=== PATIENT | male | born 1970 | race Two or more races ===

== ENCOUNTER 2020-08-15 08:09 | Outpatient (REF) | payer MEDICAID, SELFPAY ==
--- NOTE | ~2020-08-15 | XR_ITS ---
EXAMINATION: XR BILATERAL AP KNEE XR LEFT KNEE CLINICAL INFORMATION: Pain in unspecified knee. COMPARISON: None. TECHNIQUE: Bilateral AP knees standing. Left knee 2 views. FINDINGS: Bilateral AP Knee: There is moderate reduction in medial compartment joint space both knees with moderate periarticular spurring right knee. The lateral compartment joint space is normal. No loose bodies or bony erosive changes seen. Left Knee: The patellofemoral compartment joint space is maintained. No bony erosive changes seen. No abnormal joint effusion. XR/XR knee standing BI IMPRESSION: Moderate degenerative changes medial compartment both knees with moderate periarticular spurring right knee. No visible acute fracture or dislocation.
--- NOTE | ~2020-08-15 | XR_ITS ---
EXAMINATION: XR BILATERAL AP KNEE XR LEFT KNEE CLINICAL INFORMATION: Pain in unspecified knee. COMPARISON: None. TECHNIQUE: Bilateral AP knees standing. Left knee 2 views. FINDINGS: Bilateral AP Knee: There is moderate reduction in medial compartment joint space both knees with moderate periarticular spurring right knee. The lateral compartment joint space is normal. No loose bodies or bony erosive changes seen. Left Knee: The patellofemoral compartment joint space is maintained. No bony erosive changes seen. No abnormal joint effusion. XR/XR knee LT 2V IMPRESSION: Moderate degenerative changes medial compartment both knees with moderate periarticular spurring right knee. No visible acute fracture or dislocation.
== END 2020-08-15 08:10 | disposition home or self-care (01) ==
LOC: HO.HOSX 08:09
PROVIDERS: Visit Provider Physician Assistant
DX: M17.12 Unilateral primary osteoarthritis, left knee (principal)
CPT/HCPCS: 73560; 73565; 99202

== ENCOUNTER → 2020-08-23 19:42 | Outpatient (REF) | payer MEDICAID, SELFPAY | LOC: HO.SL 19:42 | PROVIDERS: Visit Provider Nurse Practitioner Family | DX: G47.30 Sleep apnea, unspecified (principal); G47.61 Periodic limb movement disorder | CPT/HCPCS: 95810 ==

== ENCOUNTER 2021-07-20 11:00 | Outpatient (REF) | payer MEDICAID, SELFPAY ==
[2021-07-20 12:44] LABS: MANUAL DIFF FLAG NO
[2021-07-20 13:15] LABS: Basophils Percent Auto 0.7 % (0-2); Eosinophils Percent Auto 0.5 % (0-4); Hematocrit 47.4 % (42.0-52.0); Hemoglobin 15.9 g/dl (14.0-18.0); Imm Gran Abs Auto 0.01 X10*3/uL (0.00-0.03); Imm Gran Pct Auto 0.2 % (0.0-0.4); Lymphocytes Absolute Auto 1.5 X10*3/uL (1.2-4.9); Lymphocytes Percent Auto 26.7 % (20-40); Mean Corpuscular HGB Conc 33.5 g/dl (31.0-36.0); Mean Corpuscular Hemoglobin 32.1 pg (27.0-33.0); Mean Corpuscular Volume 95.8 fL (80.0-98.0); Mean Platelet Volume 9.5 fL (9.4-12.4); Monocytes Absolute Auto 0.5 X10*3/uL (0.1-1.2); Monocytes Percent Auto 8.2 % (2-11); Neutrophils Absolute Auto 3.7 x10*3/uL (2.0-8.3); Neutrophils Percent Auto 63.7 % (45-73); Platelet Count 262 X10*3/uL (160-400); Red Blood Count 4.95 X10*6/uL (4.60-5.80); Red Cell Distribution Width 13.1 % (11.0-16.0); White Blood Count 5.7 X10*3/uL (4.8-10.8)
[2021-07-20 13:50] LABS: Alanine Aminotransferase 31 U/L (0-40); Albumin Level 4.4 g/dL (3.5-5.0); Alkaline Phosphatase 80 U/L (39-117); Anion Gap 16 (12-20); Aspartate Amino Transferase 32 U/L (5-37); Bilirubin Total 0.7 mg/dL (0.0-1.0); Blood Urea Nitrogen 9 mg/dL (9-16); Calcium 9.4 mg/dL (8.4-10.2); Carbon Dioxide 23 mmol/L (22-29); Chloride 101 mmol/L (96-108); Estimated Glomerular Filt Rate > 60; Glucose Random 145 mg/dL (60-115); Potassium 4.3 mmol/L (3.3-5.1); Sodium 136 mmol/L (135-145); Total Protein 7.5 g/dL (6.5-8.0)
== END 2021-07-20 11:01 | disposition home or self-care (01) ==
LOC: HO.LAB 11:00
PROVIDERS: PCP General Practice; Referring Provider General Practice; Visit Provider Nurse Practitioner
DX: Z01.818 Encounter for other preprocedural examination (principal)
CPT/HCPCS: 36415; 80053; 85025; 99202

== ENCOUNTER 2022-05-09 14:09 | Outpatient (REF) | payer MEDICAID, SELFPAY ==
--- NOTE | ~2022-05-09 | XR_ITS ---
EXAMINATION: XR ELBOW, LEFT CLINICAL INFORMATION: Pain. COMPARISON: None TECHNIQUE: AP, lateral, and oblique views of the left elbow. FINDINGS: Bony alignment and mineralization are normal. No fracture, dislocation or joint effusion is seen. There are mild osteoarthritic changes of the articular surfaces of the left elbow. No soft tissue swelling, gas or foreign body is seen. XR/XR elbow LT min 3V IMPRESSION: 1. No fracture, dislocation or left elbow joint effusion is seen. 2. There are mild osteoarthritic changes of the left elbow.
--- NOTE | ~2022-05-09 | XR_ITS ---
EXAMINATION: XR KNEE, LEFT CLINICAL INFORMATION: Osteoarthritis. COMPARISON: Radiographs dated 08/15/2020. TECHNIQUE: AP and lateral views of the left knee. FINDINGS: Bony alignment and mineralization are normal. There is moderate asymmetric narrowing of the medial joint space compartment. The lateral and patellofemoral joint space compartments are well-maintained. There is slight peripheral osteophyte formation of the patellofemoral compartment. No fracture or dislocation is seen. This no significant varus or valgus configuration. No foreign body is seen. XR/XR knee LT 3V IMPRESSION: There is moderate degenerative change of the medial joint space compartment of the left knee, and mild degenerative change is seen of the patellofemoral compartment. No fracture, dislocation or joint effusion is noted.
--- NOTE | ~2022-05-09 | XR_ITS ---
EXAMINATION: XR FOOT, RIGHT CLINICAL INFORMATION: Pain. COMPARISON: None TECHNIQUE: AP, lateral, and oblique views of the right foot. FINDINGS: Bony alignment and mineralization are normal. There is marked osteoarthritic change of the first metatarsophalangeal joint, with exuberant peripheral osteophyte formation. No fracture, dislocation or right ankle joint effusion is seen. Boehler's angle is normal. There is no calcaneal spur. No focal soft tissue swelling, gas or foreign body is seen. XR/XR foot RT min 3V IMPRESSION: 1. No fracture, dislocation or right ankle joint effusion is seen. 2. There is marked osteoarthritic change of the right first metatarsophalangeal joint.
== END 2022-05-09 14:10 | disposition home or self-care (01) ==
LOC: HO.XRAY 14:09
PROVIDERS: PCP General Practice; Visit Provider General Practice
DX: M79.671 Pain in right foot (principal); M17.12 Unilateral primary osteoarthritis, left knee; M25.522 Pain in left elbow
CPT/HCPCS: 73080; 73562; 73630

== ENCOUNTER 2022-06-05 12:58 | Day surgery (SDC) | payer MEDICAID, SELFPAY ==
[2022-05-31 14:48] VITALS: BMI 29.0
[2022-06-05 13:16] VITALS: BP 148/73; PULSE 76; RESP 18; TEMP 36.4; O2SAT 97
[2022-06-05] MEDS: Lactated Ringers 1,000 ML 50 ML IVCONT (13:41)
--- NOTE | 2022-06-05 14:14 | P.HPSUR_ITS ---
Pre-Procedural Eval Section A Date of Service: 06/05/22 Section B Chief Complaint: screening Relevant Family History (Specify if Yes): No Relevant Social History: Other (specify) (THC use) Present Medications: see Short Stay Collaborative assessment Medical History: Significant History (Obstructive sleep apnea High cholesterol HTN Smoker Chronic cough Chronic low back pain with sciatica Multiple arthra lgias) History of Previous Operations: Relevant previous surgery/procedure and date(s) (Umbilical hernia Lumbar discectomy) Allergies: Allergies Allergy/AdvReac Type Severity Reaction Status Date / Time codeine Allergy Intermediate itching Verified 05/31/22 14:44 Review of Systems Sugical H&P ROS: Negative: Constitution, Cardiovascular, Respiratory, Neurological, Psychiatric, Hem-Onc, Allergic/Immunologic, Gastrointestinal, Genitourinary, Musculoskeletal, Integumentary, Endocrine and Eyes/Ears/Nose/Throat Exam Surgical H&P Exam: Normal: HEENT, Normal: Heart, Normal: Lungs, Normal: Extremities, Normal: Abdomen, Normal: Skin and Normal: Neurological Plan Diagnosis/Plan: Unchanged I have reviewed the history and physical and performed a pertinent physical examination on my patient. No changes have occurred unless specified. Time Spent With Patient Time: Total time managing care of this patient today ____ minutes.
--- NOTE | 2022-06-05 14:16 | P.OP_ITS ---
Operative Note Operative Note Date of Service: 06/05/22 Narrative: Operative Information Procedure Description: Colonoscopy Indication: screening Anesthesia: MAC COLONOSCOPY Instrument: Olympus variable stiffnessAdult scope 190L Colonoscopy Monitoring: Vital signs and clinical assessment, continuous EKG monitoring, Pulse oximetry, Carbon Dioxide monitoring and blood pressure monitoring were done throughout the procedure. Colon withdrawal time was 12 minutes. Procedure: The patient was placed in the left lateral decubitis position and pre-procedure medications were administered. After a digital rectal examination of the ano-rectum, the video colonoscope was inserted into the rectum and advanced through the colon to the cecum/TI. The colonoscope was slowly withdrawn in a retrograde panoramic fashion and the colon mucosa was carefully examined including a retroflexed view of the rectum. Findings and interventions are described below. Procedure Difficulty: easy Findings: Terminal Ileum-normal Cecum:normal Ascending Colon: normal Transverse Colon -normal Descending Colon:normal Sigmoid Colon: normal Rectum: Retroflexion with medium sized internal hemorrhoids, grade I with skin tag, 10 mm sessile polyp removed with cold snare Anorectum - normal Colon preparation: [place] Bowel Preparation Scale Right colon; 1-2 Transverse colon:1- 2 Left colon; 2 (0 = Unprepared colon segment with mucosa not seen due to solid stool that cannot be cleared. 1 = Portion of mucosa of the colon segment seen, but other areas of the colon segment not well seen due to staining, residual stool and/or opaque liquid. 2 = Minor amount of residual staining, small fragments of stool and/or opaque liquid, but mucosa of colon segment seen well. 3 = Entire mucosa of colon segment seen well with no residual staining, small fragments of stool or opaque liquid) Impression and Post Procedure Diagnosis: internal hemorrhoids wt skin tag polyp Plan: High fiber diet leaflet Avoid straining at stool, epsom salts and sitz bath, anusol supps or cream Repeat Colonoscopy in 5 years due to fair prep and polyp or earlier if clinically indicated Above findings were reviewed with the patient and relevant handouts were provided if indicated.
--- NOTE | 2022-06-05 14:36 | HO.ANESPROP2 ---
[facility] Active Problems Active Problems: All Active Problems (Updated 06/05/22 @ 13:29 by Dona Crain RN) Knee pain (Acute) Osteoarthritis of left knee (Acute) High cholesterol (Acute) LIDIA (obstructive sleep apnea) (Acute) Smoker (Acute) Chronic cough (Acute) Chronic low back pain with sciatica (Acute) Arthralgia of multiple sites, bilateral (Acute) Colon cancer screening (Acute) Past Medical History Medical History (Updated 06/05/22 @ 13:29 by Dona Crain RN) Elevated cholesterol High blood pressure Hx of back injury Hx of backache Sleep disturbance, unspecified Family History Family History (Updated 07/20/21 @ 11:39 by Doreen Vann) Father Diabetes Paternal Grandfather Diabetes Arthritis Mother Heart disease Family history of problems with anesthesia: No Surgical History Surgical History (Updated 06/05/22 @ 13:29 by Dona Crain RN) History of back surgery History of hand surgery Hx of umbilical hernia repair History of Problems with Anesthesia: No Social History Social History (Updated 07/20/21 @ 11:23 by Doreen Vann) Household Members: None Alcohol intake: current Alcohol intake frequency: holidays/special occasions only Patient Tobacco Use Status: Current everyday Tobacco user Tobacco use type: Cigarette Substance Use Type: Marijuana Are you DNR?: No Advance Directives: No Advance Directives Information Provided: Yes Current occupational status: unemployed Current occupation: rt hand Meds Allergies Allergy/AdvReac Type Severity Reaction Status Date / Time codeine Allergy Intermediate itching Verified 05/31/22 14:44 amlodipine Allergy Swelling Verified 06/05/22 14:17 Active Medications: Current Medications Lactated Ringer's (Lr) 1,000 mls @ 50 mls/hr IVCONT .Q20H JUAN Last Admin: 06/05/22 13:41 Dose: 50 mls/hr Home Medications Medication Instructions Recorded Confirmed Last Taken Type cyclobenzaprine 5 mg tablet 5 mg PO TID PRN Pain 07/20/21 06/04/22 History hydrochlorothiazide 12.5 mg tablet 12.5 mg PO DAILY 07/20/21 06/03/22 History Exam Exam Date and Time: June 05, 2022 1436 Height,Weight and Vital Signs: Height 5 ft 7 in Weight 83.915 kg Last Vital Signs Temp 97.5 F 06/05/22 13:16 Pulse 76 06/05/22 13:16 Resp 18 06/05/22 13:16 BP 148/73 H 06/05/22 13:16 Pulse Ox 97 06/05/22 13:16 O2 Del Method 06/05/22 13:16 Airway Mallampati Class: II TM Dist: >3cm Neck ROM: Full Assessment and Plan Assessment Anesthesia Assessment: Anesthesia Plan Discussed and Chart Reviewed Final Anesthetic Review Family History of Problems with Anesthesia: No History of Problems with Anesthesia: No NPO: Yes ASA Class: III Final Preanesthetic Review: No Changes in Pt Med Stat, Meds/Allgs Chart Reviewed, Consent Obtained/Reviewed and Anes Risks/Benef Reviewed Patient Risk: Intermediate Procedure Risk: Low Anesthetic Plan Anesthetic Plan: MAC: Disposition: Standard PACU
[2022-06-05 15:02] VITALS: BP 141/91; PULSE 77; RESP 16; TEMP 36.2; O2SAT 99
[2022-06-05 15:17] VITALS: BP 145/96; PULSE 70; RESP 16; O2SAT 99
[2022-06-05 15:32] VITALS: BP 147/96; PULSE 68; RESP 16; O2SAT 99
[2022-06-05 15:45] VITALS: BP 142/104; PULSE 72; RESP 16; TEMP 36.4; O2SAT 100
== END 2022-06-05 16:33 | disposition home or self-care (01) ==
PROVIDERS: PCP General Practice; Visit Provider Internal Medicine Gastroenterology
PROC: 0DJD8ZZ Inspection of Lower Intestinal Tract, Via Natural or Artificial Opening Endoscopic (ICD-10-PCS; CPT 45378; principal; 2022-06-05 12:50)
DX: Z12.11 Encounter for screening for malignant neoplasm of colon (principal); K62.1 Rectal polyp; K64.0 First degree hemorrhoids; K64.4 Residual hemorrhoidal skin tags; G47.33 Obstructive sleep apnea (adult) (pediatric); E78.00 Pure hypercholesterolemia, unspecified; I10 Essential (primary) hypertension; R05.3 Chronic cough; G89.29 Other chronic pain; M54.40 Lumbago with sciatica, unspecified side; Z79.899 Other long term (current) drug therapy; Z88.8 Allergy status to other drugs, medicaments and biological substances; F17.210 Nicotine dependence, cigarettes, uncomplicated; F12.90 Cannabis use, unspecified, uncomplicated
CPT/HCPCS: 45385; 88305

== ENCOUNTER → 2022-06-20 14:36 | Outpatient (BNVA) | payer MEDICAID, SELFPAY | PROVIDERS: PCP General Practice; Visit Provider Nurse Practitioner | DX: Z12.11 Encounter for screening for malignant neoplasm of colon (principal) | CPT/HCPCS: 99212 ==

== ENCOUNTER 2023-02-14 15:44 | Outpatient (REF) | payer MEDICAID, SELFPAY ==
--- NOTE | ~2023-02-14 | XR_ITS ---
EXAMINATION: XR KNEE, RIGHT CLINICAL INFORMATION: Chronic pain COMPARISON: 08/15/2020 TECHNIQUE: 3 views of the right knee. FINDINGS: Tricompartmental degenerative changes seen more so in the medial compartment where there is more significant loss of joint space, subchondral sclerosis, and osteophyte formation. No acute fracture or dislocation. Mild vascular calcification. No significant joint effusion. XR/XR knee RT 3V IMPRESSION: Tricompartmental degenerative changes more so in the medial compartment.
== END 2023-02-14 15:45 | disposition home or self-care (01) ==
LOC: HO.HHCX 15:44
PROVIDERS: Visit Provider General Practice
DX: M25.561 Pain in right knee (principal)
CPT/HCPCS: 73562

== ENCOUNTER 2023-04-30 10:32 | Outpatient (REF) | payer MEDICAID, SELFPAY ==
[2023-04-30 12:46] LABS: Alanine Aminotransferase 38 U/L (0-40); Albumin Level 4.4 g/dL (3.5-5.0); Alkaline Phosphatase 86 U/L (39-117); Anion Gap 13 (12-20); Aspartate Amino Transferase 26 U/L (5-37); Bilirubin Total 0.4 mg/dL (0.0-1.0); Blood Urea Nitrogen 11 mg/dL (9-16); Calcium 9.5 mg/dL (8.4-10.2); Carbon Dioxide 28 mmol/L (22-29); Chloride 100 mmol/L (96-108); Cholesterol 205 mg/dL (<200); Estimated Glomerular Filt Rate > 60; Glucose Random 107 mg/dL (60-115); HDL Cholesterol 49 mg/dL (>40); LDL Cholesterol Calculated 121 mg/dL (<100); Sodium 137 mmol/L (135-145); Total Protein 7.9 g/dL (6.5-8.0); Triglycerides 177 mg/dL (<150)
[2023-04-30 12:57] LABS: Creatinine Urine 66.83 mg/dL; Microalbumin Urine < 5.0 mg/L
== END 2023-04-30 10:33 | disposition home or self-care (01) ==
LOC: HO.HHCL 10:32
PROVIDERS: Visit Provider General Practice
DX: E11.9 Type 2 diabetes mellitus without complications (principal)
CPT/HCPCS: 36415; 80053; 80061; 82043; 82570

== ENCOUNTER 2024-02-16 10:22 | Outpatient (REF) | payer MEDICAID, SELFPAY ==
--- NOTE | ~2024-02-16 | XR_ITS ---
EXAMINATION: XR LUMBOSACRAL SPINE CLINICAL INFORMATION: pain and worsening disability COMPARISON: MRI lumbar spine 09/07/2019, lumbar spine radiographs 05/18/2019 TECHNIQUE: Three views of the lumbosacral spine. FINDINGS: Again seen is a scoliosis convex to the left. There is some mild spondylitic changes seen with endplate osteophytes involving the superior endplates of L2 L4 and L5 as well as T12. Disc space and vertebral body heights are fairly well maintained. No fractures or bony destructive lesions. XR/XR lumbar spine 2-3V IMPRESSION: Scoliosis and mild degenerative changes. No acute finding. Electronically signed by: Kg Wood MD 02/16/2024 03:27 PM BURKE NOGUEIRA
== END 2024-02-16 10:23 | disposition home or self-care (01) ==
LOC: HO.HHCX 10:22
PROVIDERS: Visit Provider General Practice
DX: M54.50 Low back pain, unspecified (principal); G89.29 Other chronic pain
CPT/HCPCS: 72100

== ENCOUNTER 2024-05-18 11:21 | Outpatient (REF) | payer MEDICAID, SELFPAY ==
--- NOTE | ~2024-05-18 | XR_ITS ---
CLINICAL HISTORY: R hand pain Radiographs of the right hand, 3 views Comparison: None Findings: No fracture or dislocation. Vvci-do-qyllxaef degenerative change. Bone mineralization is normal. No soft tissue swelling. Impression: No acute findings. Jzrb-cb-iuufeqgx degenerative change. This document has been electronically signed by: Anastacia Singh MD on 05/18/2024 13:16:43
--- OUTSIDE RECORDS SUMMARY | 2024-05-18 12:37 | XMS_ITS | Encounter Summary ---
Author Organization [employer] Address [address] [place] [address] [address] [place] [address] Care Team Providers Care Sales Team Member Name Role Phone Cate Chavez MD Primary Care Provider [phone] Reason for Visit * Reason Comments Annual Exam Encounter Details Date Type Department Care Team (Late st Contact Info) Description 05/18/2024 10:30 AM EST Office Visit [facility] [address] [place], [place] [phone] Cate Chavez MD [address] [place], [place] [phone] Obstructive sleep apnea syndrome (Primary Dx); Prediabetes; Essential hypertension; Hyperkalemia; Dietary counseling; Exercise counseling; Overweight; Right hand pain Social History Tobacco Use Types Packs/Day Years Used Date Smoking Tobacco: Every Day Cigarettes Passive Smoke Exposure: Current Smokeless Tobacco: Never Tobacco Cessation:Ready to Q uit: Not Asked; Counseling Given: Not Answered Alcohol Use Standard Drinks/Week Comments Never 0 (1 standard drink = 0.6 oz pur e alcohol) Alcohol Answer Date Recorded How often do you have a drink containing alcohol ? 3 05/18/2024 How many drinks containing a lcohol do you have on a typical day when you are drinking? 0 05/18/2024 How often do you have six or more drinks on one occasion? 0 05/18/2024 Depression Answer Date Recorded Patient Health Questionnaire-9 Score 18 07/25/2023 Patient Health Questionnaire-9 Score 18 07/25/2023 Last PHQ-9: Questionnaire Data Not on file 0 07/25/2023 Housing Stability Answer Date Recorded What is your housing situation today? I do not have housing (Staying with others, in a hotel, in a penitentiary, living outside on the street, on a beach, in a car, or in a park 05/04/[address] you li ve. Do you have problems with any of the following? None of the above 05/04/2024 Food Insecurity Answer Date Recorded Within the past 12 months, y ou worried that your food would run out before you got money to buy more: Sometimes True 2024 Within the past 12 months,th e food you bought just didn't last and you didn't have enough money to get more: Sometimes True 05/04/2024 Transportation Answer Date Recorded In the past 12 months, has l ack of transportation kept you from medical appts, meetings, work or from getting things needed for daily living? No 05/04/2024 Intimate Partner Violence Answer Date R ecorded Within the last year, have y ou been afraid of your partner or ex-partner? 1 05/18/2024 Within the last year, have y ou been humiliated or emotionally abused in other ways by your partner or ex-partner? 2 Within the last year, have y ou been kicked, hit, slapped, or otherwise physically hurt by your partner or ex-partner? 1 05/18/2024 Within the last year, have y ou been raped or forced to have any kind of sexual activity by your partner or ex-partner? 2 05/18/2024 Utilities Answer Date Recorded In the past 12 months, has t he electric, gas, oil or water company threatened to shut off services in your home? No 05/04/2024 Depression Answer Date Recorded Patient Health Questionnaire-2 Score 6 07/25/2023 Internet Access Answer Date Recorded Internet Access Q1 No 05/04/2024 Internet Access Q2 Not on file 05/04/2024 Sex and Gender Information Value Date Recorded Sex Assigned at Male 01/28/2022 10:29 AM EDT Legal Sex Male 10:29 AM EDT Gender Identity Male 01/28/2022 10:29 AM EDT Sexual Orientation Straight 01/28/2022 10 :29 AM EDT documented as of this encounter Last Filed Vital Signs Vital Sign Reading Time Taken Comments Blood Pressure 157/91 05/18/2024 10:38 AM EST Pulse 86 05/18/2024 10:38 AM EST Temperature 36.4 ??C (97.6 ??F) 05/18/2024 10:[address] Respiratory Rate 17 05/18/2024 10:38 AM EST Oxygen Saturation 98% 05/18/2024 10:38 AM EST Inhaled Oxygen Concentration - - Weight 80.7 kg (178 lb) 05/18/2024 10:38 AM EST Height 170.2 cm (5' 7 ) 05/18/2024 10:38 AM EST Body Mass Index 27.88 05/18/2024 10:38 AM EST documented in this encounter Plan of Treatment Scheduled Orders Name Type Priority Associated Diagnoses Orde r Schedule Lipid Panel, Standard Lab Routine Prediabetes Expected: 05/18/2024 (Approximate), Expires: 05/18/2025 Hemoglobin A1c Lab Routine Prediabetes Expected: 05/18/2024 (Approximate), Expires: 05/18/2025 CBC auto differential Lab Routine Essential hypertension Expected: 05/18/2024 (Approximate), Expires: 05/18/2025 TSH W/Reflex to FT4 Lab Routine Essential hypertension Expected: 05/18/2024 (Approximate), Expires: 05/18/2025 Albumin, Random Urine W/Creatinine Lab Routine Prediabetes Expected: 05/18/2024 (Approximate), Expires: 05/18/2025 Comprehensive Metabolic Panel Lab Routine Hyperkalemia Expected: 05/18/2024 (Approximate), Expires: 05/18/2025 XR Hand 3+ Views Right Imaging Routine Right hand pain Expected: 05/18/2024, Expires: 05/18/2025 documented as of this encounter Visit Diagnoses Diagnosis Obstructive sleep apnea syndrome- Primary Obstructive sleep apnea (adult) (pediatric) Prediabetes Other abnormal glucose Essential hypertension Unspecified essential hypertension Hyperkalemia Hyperpotassemia Dietary counseling Dietary surveillance and counseling Exercise counseling Overweight Right hand pain Pain in soft tissues of limb documented in this encounter Additional Health Concerns Assessment Noted Time PHQ-9 Depression Total Score: 18 024 9:30 AM EDT documented as of this encounter Care Teams Sales Team Member Relationship Specialty Start Date End Date Cate Chavez MD [address] [place] [id number] PCP - General Family Medicine 11/21/20 documented as of this encounter
--- OUTSIDE RECORDS SUMMARY | 2024-05-18 12:37 | XMS_ITS | Encounter Summary ---
Author Organization [employer] Address [address] [facility] [address] [place] [address] Care Team Providers Care Oracle Application Consultant Name Role Phone Cate Chavez MD Primary Care Provider [phone] Reason for Visit * Reason Comments Pre-visit Planning (SDOH screening posi tive tobacco screening positive) Encounter Details Date Type Department Care Team ([facility] st Contact Info) Description 05/04/2024 Patient Outreach [facility] [address] [place], [place] [phone] Cate Chavez MD [address] [place] [address] Pre-visit Planning ((SDOH screening positive tobacco screening positive)) Social History Tobacco Use Types Packs/Day Years Used Date Smoking Tobacco: Every Day Cigarettes Passive Smoke Exposure: Current Smokeless Tobacco: Never Alcohol Use Standard Drinks/Week Comments Never 0 (1 standard drink = 0.6 oz pur e alcohol) Depression Answer Date Recorded Patient Health Questionnaire-9 Score 18 07/25/2023 Patient Health Questionnaire-9 Score 18 07/25/2023 Last PHQ-9: Questionnaire Data Not on file 0 07/25/2023 Housing Stability Answer Date Recorded What is your housing situation today? I do not have housing (Staying with others, in a hotel, in a care home, living outside on the street, on a [...] things needed for daily living? No 05/04/2024 Utilities Answer Date Recorded In the past [...] AM EDT documented as of this encounter Progress Notes * Paola Foley - 05/04/2024 9:11 AM EST CC Paola placed successful outbound call to patient for pre-visit planning. Patient name and confirmed. Patient confirms appt date and time, and has transportation arrangements. Biggest concern for appointment at this time is sleep apnea Appropriate screening completed in anticipation of appointment. Patient advised to bring to appointment a photo id and insurance card, SDOH positive. Patient looking for assistance with hosuing and food insecurities Referral will be placed. documented in this encounter Plan of Treatment Not on file documented as of this encounter Visit Diagnoses Not on filedocumented in this encounter Additional Health Concerns Assessment Noted Time PHQ-9 Depression Total Score: 18 024 9:30 AM EDT documented as of this encounter Care Teams Oracle Application Consultant Relationship Specialty Start Date End Date Cate Chavez MD [address] [place] [address] PCP - General Family Medicine 11/21/20 documented as of this encounter
--- OUTSIDE RECORDS SUMMARY | 2024-05-18 12:37 | XMS_ITS | Clinical Summary ---
Author Organization [employer] Address [address] [facility] [address] [place] [address] Care Team Providers Care Manager Legal Name Role Phone Cate Chavez MD Primary Care Provider [phone] Allergies Active Allergy Reactions Criticality Noted Date Comments Codeine 09/18/2015 Other reaction(s): Itching Lisinopril Angioedema 12/25/2020 Naproxen 05/14/2019 Other reaction(s): Nausea / Vomiting Medications * This document contains information received from the source organization and may not represent a complete record from that organization. acetaminophen (Tylenol 8 Hour) 650 MG ER tablet Take 1 tablet (650 mg) by mouth every 8 (eight) hours if needed for moderate pain or mild pain. 90 tablet 3 05/18/19 25 Active DULoxetine (Cymbalta) [address] capsule Take 1 capsule (20 mg) by mouth Once per day. For arthritis. Do not crush or chew. 90 capsule 3 05/18/19 25 026 Active gabapentin (Neurontin) 300 MG capsule TAKE 1 CAPSULE BY MOUTH EVERY DAY BEFORE BEDTIME 90 capsule 05/18/19 25 Active hydroCHLOROthi azide (HYDRODiuril) 25 MG tablet Take 1 tablet (25 mg) by mouth Once per day. 90 tablet 05/18/19 25 Active meloxicam (Mobic) 15 MG tablet Take 1 tablet (15 mg) by mouth Once per day. For arthritis 90 tablet 05/18/19 25 026 Active metFORMIN XR (Glucophage-XR ) 500 MG 24 hr tablet Take 1 tablet (500 mg) by mouth with evening meal. Do not crush, chew, or split. 90 tablet 05/18/19 25 Active lidocaine (Xylocaine) 5 % ointment Apply topically Once per day. 50 g 6 05/18/19 25 Active cyclobenzaprin e (Flexeril) 5 MG tablet Take 1 tablet (5 mg) by mouth at bedtime. 30 tablet 3 05/18/19 25 025 Active gabapentin (Neurontin) 300 MG capsule TAKE 1 CAPSULE BY MOUTH EVERY DAY BEFORE BEDTIME 90 capsule 3 02/16/20 24 025 Discontinued(Re order (will not trigger notification to Pharmacy)) metFORMIN XR (Glucophage-XR ) 500 MG 24 hr tablet Take 1 tablet (500 mg) by mouth with evening meal. Do not crush, chew, or split. 90 tablet 3 02/16/20 24 025 Discontinued(Re order (will not trigger notification to Pharmacy)) meloxicam (Mobic) 15 MG tablet Take 1 tablet (15 mg) by mouth Once per day. For arthritis 90 tablet 3 02/16/20 24 025 Discontinued(Re order (will not trigger notification to Pharmacy)) DULoxetine (Cymbalta) [address] capsule Take 1 capsule (20 mg) by mouth Once per day. For arthritis. Do not crush or chew. 90 capsule 3 02/16/20 24 025 Discontinued(Re order (will not trigger notification to Pharmacy)) hydroCHLOROthi azide (HYDRODiuril) 25 MG tablet Take 1 tablet (25 mg) by mouth Once per day. 90 tablet 3 02/16/20 24 025 Discontinued(Re order (will not trigger notification to Pharmacy)) acetaminophen (Tylenol 8 Hour) 650 MG ER tablet Take 1 tablet (650 mg) by mouth every 8 (eight) hours if needed for moderate pain or mild pain. 90 tablet 3 02/16/20 24 025 Discontinued(Re order (will not trigger notification to Pharmacy)) lidocaine (Xylocaine) 5 % ointment Apply topically Once per day. 50 g 6 02/16/20 24 025 Discontinued(Re order (will not trigger notification to Pharmacy)) Active Problems Problem Noted Date Diagnosed Date Encounter for routine adult medical exam with abnormal findings 04/30/2023 Primary osteoarthritis of right knee 02/17/2023 Chronic cough 05/02/2022 Chronic low back pain 05/02/2022 Assessment & Plan (02/16/2024 10:58 AM EST): Xrays today Continue APAP, Gabapentin and Duloxetine for pain Dyslipidemia 05/02/2022 Essential hypertension 05/02/2022 Overview (05/02/2022): Could not tolerate ACEi due to scrotal swelling Assessment & Plan (02/16/2024 10:54 AM EST): Maintenance: continue hydrochlorothiazide 25mg daily, refills placed today BMP: Lab Results Component Value Date CREATININE 0.91 04/30/2023 CREATININE 0.97 07/20/2021 K 4.0 04/30/2023 Lipid Panel: ASCVD Risk: Calculate pending updated labs EKG: Obtain baseline at f/u - Aerobic exercise to reduce BP. Initial goal of 30 min walk 3-5x/week. Increase as tolerated. - low-sodium diet (goal: <2g/day) and heart healthy diet such as DASH to reduce BP and prevent ASCVD. - Home BP monitoring 1-2 x day with goal of <140/90. - Seek immediate medical attention for chest pain, palpitations, SOB, syncope, or sudden changes in mental status. - Do not change or discontinue current prescriptions without first consulting health care provider Assessment & Plan (04/30/2023 1:03 PM EST): Maintenance: needs to actually take hydrochlorothiazide 25mg, not at goal BMP: Lab Results Component Value Date CREATININE 0.91 04/30/2023 CREATININE 0.97 07/20/2021 K 4.0 04/30/2023 Lipid Panel: ASCVD Risk: Calculate pending updated labs EKG: Obtain baseline at f/u - Aerobic exercise to reduce BP. Initial goal of 30 min walk 3-5x/week. Increase as tolerated. - low-sodium diet (goal: <2g/day) and heart healthy diet such as DASH to reduce BP and prevent ASCVD. - Home BP monitoring 1-2 x day with goal of <140/90. - Seek immediate medical attention for chest pain, palpitations, SOB, syncope, or sudden changes in mental status. - Do not change or discontinue current prescriptions without first consulting health care provider Assessment & Plan (02/17/2023 8:45 AM EST): Maintenance: hydrochlorothiazide 25mg, not at goal BMP: Lab Results Component Value Date CREATININE 0.92 04/29/2022 CREATININE 0.97 07/20/2021 K 4.5 04/29/2022 Lipid Panel: ASCVD Risk: Calculate pending updated labs EKG: Obtain baseline at f/u - Aerobic exercise to reduce BP. Initial goal of 30 min walk 3-5x/week. Increase as tolerated. - low-sodium diet (goal: <2g/day) and heart healthy diet such as DASH to reduce BP and prevent ASCVD. - Home BP monitoring 1-2 x day with goal of <140/90. - Seek immediate medical attention for chest pain, palpitations, SOB, syncope, or sudden changes in mental status. - Do not change or discontinue current prescriptions without first consulting health care provider Assessment & Plan (07/26/2022 8:04 AM EDT): UNCONTROLLED asymptomatic Repeat vitals 177/126, 177/111 Does not want to go to ER Called pharmacy and they will give him hydrochlorothiazide 25mg right now To take it right when he pick it up Take it daily discussed heart attack/stroke risk signs and ER rpecautions Assessment & Plan (05/02/2022 6:33 AM EST): Needs take hydrochlorothiazide Discussed dangers of heart attack, stroke Pain in toe 05/02/2022 Assessment & Plan (07/28/2023 6:52 AM EDT): Bunion, R great toe, declines referral to podiatry currently Hyperkalemia 05/02/2022 Mixed anxiety and depressive disorder 05/02/2022 Assessment & Plan (02/16/2024 10:56 AM EST): Referral to for repeat BE, assistance with diagnostic formulation (anxiety/depression versus bipolar) Assessment & Plan (02/17/2023 8:45 AM EST): In therapy at [facility] Assessment & Plan (05/02/2022 6:34 AM EST): active right now due to life stressors with housing Multiple joint pain 05/02/2022 Assessment & Plan (05/02/2022 6:34 AM EST): L knee, L elbow, R foot Repeat xrays ordered Continue Gabapentin, Tylenol Overweight 05/02/2022 Pain in elbow 05/02/2022 Periodic limb movement disorder 05/02/2022 Assessment & Plan (02/16/2024 10:54 AM EST): Has sleep study scheduled for Feb 2024 Assessment & Plan (02/17/2023 8:42 AM EST): On Ropinirole 0.5mg Can't tell if it is helping or not Prediabetes 05/02/2022 Assessment & Plan (02/16/2024 10:56 AM EST): Can use Metformin 500mg daily to reduce risk of progression to DM2 Sleep apnea 05/02/2022 Problem related to housing and economic circumst ances 05/02/2022 Assessment & Plan (07/26/2022 8:06 AM EDT): Has put in requests with several agencies/section 8 lists Frustrated by the waitlist Elbow pain, chronic, left 05/02/2022 Assessment & Plan (02/16/2024 10:55 AM EST): Due to OA, last xrays 2022 Continue brace/strap as tolerated Localized osteoarthritis of left knee 05/02/2022 Assessment & Plan (07/26/2022 8:05 AM EDT): Will start Cymbalta (may help with depression as well), Mobic (eGFR > 60), glucosamine followup in 2 months to assess efficacy Resolved Problems Problem Noted Date Diagnosed Date Resolved Date Controlled type 2 diabetes m ellitus without complication, without long-term current use of insulin 04/30/2023 02/16/2024 Assessment & Plan (04/30/2023 1:04 PM EST): Pre-DM Has evolved into kelvin DM2 with A1C of 6.7 Start Metformin 500mg XR daily F/u in 3 months diet changes, decrease alcohol consumption Encounters * This document contains information received from the source organization and may not represent a complete record from that organization. Date Type Department Care Team Description 05/18/2024 10:30 AM EST Office Visit [address] [address] Cate Chavez MD Obstructive sleep apnea syndrome (Primary Dx); Prediabetes; Essential hypertension; Hyperkalemia; Dietary counseling; Exercise counseling; Overweight; Right hand pain 05/18/2024 Travel 05/04/2024 Patient Outreach [address] [address] Cate Chavez MD Care Coordination (CHW outreach for SDOH housing search-referral completed ) 05/04/2024 Patient Outreach [address] [address] Cate Chavez MD Pre-visit Planning ((SDOH screening positive tobacco screening positive)) 04/14/[address] [address] Cate Chavez MD telephone call 02/23/[address] [address] Lela Cantrell RN 02/16/2024 9:30 AM EST Office Visit [address] [address] Cate Chavez MD Chronic bilateral low back pain, unspecified whether sciatica present (Primary Dx); Problem related to housing and economic circumstances; Elbow pain, chronic, left; Essential hypertension; Periodic limb movement disorder; Mixed anxiety and depressive disorder; Obstructive sleep apnea syndrome; Prediabetes 02/16/2024 Travel from Last 3 Months Immunizations Name Administration Dates Next Due Tdap 04/30/2023 Social History Tobacco Use Types Packs/Day Years [...] with others, in a hotel, in a [place], living outside on the street, on a [...] Orientation Straight 01/28/2022 10 :29 AM EDT Last Filed Vital Signs Vital Sign Reading [...] Mass Index 27.88 05/18/2024 10:38 AM EST Plan of Treatment Health Maintenance Due Date Last Done Comments CT Colonography 1970 FIT DNA/Cologuard 1970 FIT 1970 FOBT 1970 Sigmoidoscopy 1970 Hepatitis B Vaccines (1 of 3 - 19+ 3-dose series) 1989 Pneumococcal Vaccine: 50+ Years (1 of 2 - PCV) 1989 Zoster Vaccines (1 of 2) 2020 COVID-19 Vaccine (1 - 2023- season) 2023 Influenza Vaccine (#1) 2023 Depression Monitoring (PHQ-9) 01/24/2024 07/25/2023, 07/25/2023 Diabetes: Urine Protein Screening 04/30/2024 04/30/2023, 05/18/2019 Lipid Panel 04/30/2024 04/30/2023, 04/02, 07/14/2020 Diabetes: Hemoglobin A1C 05/16/2024 024, 04/30/2023, 04/29/2022, Additional history exists Depression Screening 07/24/2024 07/25/2023, 04/29/19 23 SDOH Screening 05/04/2025 05/04/2024 Alcohol/Substance Use Screening 05/18/2025 05/18/2024 Tobacco Screening 05/18/2025 05/18/2024 Colonoscopy 06/07/2027 06/06/2022 Colorectal Cancer Screening 06/07/2027 DTaP/Tdap/Td Vaccines (2 - Td or Tdap) 04/30/2033 04/30/2023 RSV Patients and Patients Aged 60 years or older (1 - 1-dose 75+ series) 2045 HIV Screening Completed 01/24/2021 Hepatitis C Screening Completed 04/29/2022, 021 Diabetes: Foot Exam Discontinued Eye Exam Discontinued HIB Vaccines Aged Out No longer eligi ble based on patient's age to complete this topic HPV Vaccines Aged Out No longer eligi ble based on patient's age to complete this topic Hepatitis A Vaccines Aged Out No long er eligible based on patient's age to complete this topic IPV Vaccines Aged Out No longer eligi ble based on patient's age to complete this topic Meningococcal Vaccine Aged Out No minna cally eligible based on patient's age to complete this topic RSV under 20 months Aged Out No longe r eligible based on patient's age to complete this topic Rotavirus Vaccines Aged Out No longer eligible based on patient's age to complete this topic Procedures Procedure Name Priority Date/Time Associated Diagnosis Comments XR LUMBAR SPINE 2-3 VIEWS Routine 02/16/2024 10:23 AM EST Chronic bilateral low back pain, unspecified whether sciatica present POCT GLYCOSYLATED HEMOGLOBIN (HGB A1C) Routine 11/14/2023 9:54 AM EDT Controlled type 2 diabetes mellitus without complication, without long-term current use of insulin ([facility]/HCC) ALBUMIN, RANDOM URINE W/CREATININE Routine 04/30/2023 10:36 AM EST Controlled type 2 diabetes mellitus without complication, without long-term current use of insulin (CMS/HCC) LIPID PANEL, STANDARD Routine 04/30/2023 10:36 AM EST Controlled type 2 diabetes mellitus without complication, without long-term current use of insulin (CMS/HCC) HM COLONOSCOPY Routine 06/06/2022 HEPATITIS C AB W/REFL TO HCV RNA, QN, PCR Routine 04/29/2022 2:31 PM EST Primary hypertension HIV 1/2 ANTIGEN/ANTIBODY, FOURTH GENERATION W/RFL Routine 01/24/2021 1:02 PM EDT from Last 3 Months or Most Recently Relevant to Health Maintenance Results * XR Lumbar Spine 2-3 Views (02/16/2024 10:23 AM EST) Anatomical Region Laterality Modality Spine, L-spine Radiographic Sandhya ging 02/16/2024 10:2 3 AM EST Narrative 02/16/2024 3:29 PM EST ?[facility] ?[address] ?[place] [address] ?XRay Report ? Signed ? Patient: Jin Jacobs ?MR#: [id number] ?? 3 ? : 1970 ?Acct:[id number] ? Age/Sex: 53 / M ?ADM Date: 02/16/24 ? Loc: HO.HHCX ? Attending Dr: Cate Chavez MD ? Ordering Physician: Cate Chavez ?? Date of Service: 02/16/24 ?? Procedure(s): XR lumbar spine 2-3V ?? Accession Number(s): [id number] ? cc: Cate Chavez ? EXAMINATION: ?? XR LUMBOSACRAL SPINE ? CLINICAL INFORMATION: ?? pain and worsening disability ? COMPARISON: ?? MRI lumbar spine 09/07/2019, lumbar spine radiographs 05/18/2019 ? TECHNIQUE: ?? Three views of the lumbosacral spine. ? FINDINGS: ?? Again seen is a scoliosis convex to the left. There is some mild ?? spondylitic changes seen with endplate osteophytes involving the ?? superior endplates of L2 L4 and L5 as well as T12. Disc space and ?? vertebral body heights are fairly well maintained. No fractures or bony ?? destructive lesions. ? XR/XR lumbar spine 2-3V ?? IMPRESSION: ?? Scoliosis and mild degenerative changes. No acute finding. ? Electronically signed by: ??Kg Wood MD ??02/16/2024 03:27 PM EST ?? RP ? Dictated By: ?Kg Wood MD ? Signed By: ?<Electronically signed by Kg Wood MD in OV> ? 02/16/24 1527 ? DD/ 1023 ? TD/TT: 02/16/24 1140 ? Ict Trainer: SS ? Procedure Note Donotvinnyinterpreter, Image - 02/16/[address] [address] XRay Report Signed Patient: Jin JacobsMR#: [id number] 3 : 1970Acct:[id number] Age/Sex: 53 / MADM Date: 02/16/24 [facility] Att[facility] Dr: Cate Chavez MD Ordering Physician: Cate hCavez Date of Service: 02/16/24 Procedure(s): XR lumbar spine 2-3V Accession Number(s): [id number] cc: Cate Chavez EXAMINATION: XR LUMBOSACRAL SPINE CLINICAL INFORMATION: pain and worsening disability COMPARISON: MRI lumbar spine 09/07/2019, lumbar spine radiographs 05/18/2019 TECHNIQUE: Three views of the lumbosacral spine. FINDINGS: Again seen is a scoliosis convex to the left. There is some mild spondylitic changes seen with endplate osteophytes involving the superior endplates of L2 L4 and L5 as well as T12. Disc space and vertebral body heights are fairly well maintained. No fractures or bony destructive lesions. XR/XR lumbar spine 2-3V IMPRESSION: Scoliosis and mild degenerative changes. No acute finding. Electronically signed by: Kg Wood MD 02/16/2024 03:27 PM EST Dictated By: Kg Wood MD Signed By: <Electronically signed by Kg Wood MD in OV> 02/16/24 1527 DD/ 1023 TD/TT: 02/16/24 1140 Ict Trainer: BABAK Cate Chavez MD IMG XR PROCEDURES Final Result * POCT glycosylated hemoglobin (Hgb A1c) (11/14/2023 9:54 AM EDT) Hemoglobin A1C 5.6 4.0 - 6.0 % QC Media Lot # [id number] Lot# Expiration Date 4182 Blood Capillary blood specimen / Unknown 11/14/2023 9:54 AM EDT Cate Chavez MD POINT OF CARE TEST ENTER/EDIT ORDERABLES Final Result * Albumin, Random Urine W/Creatinine (04/30/2023 10:36 AM EST) Creatinine, Urine 66.83 mg/dL [facility] Microalbumin Urine <5.0 mg/L [facility] Microalbum Creatinine Ratio Ur TNP <30 ug/mg cr [facility] Comment:Unable to calculate albumin/creatinine ratio due to lowmicroalbumin or creatinine result. Urine (Urine, Random) 04/30/2023 10:36 AM EST 04/30/2023 11:51 AM EST Cate Chavez MD LAB URINE ORDERABLES Final Res ult [facility] [address] [place], [place] [phone] * (ABNORMAL) Lipid Panel, Standard (04/30/2023 10:36 AM EST) Triglycerides 177(H) <150 mg/dL [facility] Comment:Desirable Triglyceri de: less than 150 mg/dLBorderline High Triglyceride 150-199 mg/dLHigh Triglyceride: 200-499 mg/dLVery High Triglyceride: greater than or equal to 5OO mg/dL Cholesterol 205(H) <200 mg/dL [facility] Comment:Desirable Cholestero l: less than 200 mg/dLBorderline High Cholesterol: 200-239 mg/dLHigh Cholesterol: greater than 239 mg/dL LDL Cholesterol Calculated 121(H) <100 mg/dL [facility] Comment:Desirable LDL: less than 100 mg/dLNear Optimal/Above Optimal LDL: 110- 129 mg/dLBorderline High LDL: 130-159 mg/dLHigh LDL: 160-189 mg/dLVery High LDL: greater than or equal to 190 mg/dL HDL Cholesterol 49 >40 mg/dL [facility] Comment:Desirable HDL: great er than 40 mg/dL Note: This HDL assay may give artificially low results in patients with liver disease. Blood Venous blood specimen / Unknown 04/30/2023 10:36 AM EST 04/30/2023 11:43 AM EST Cate Chavez MD LAB BLOOD ORDERABLES Final Res ult [facility] [address] [place] [phone] * Hm Colonoscopy (06/06/2022) Colonoscopy Normal Normal Narrative Francie Bar - 06/06/2022 Repeat in 5 years Historical Provider HEALTH MAINTENANCE Final Result * Hepatitis C Antibody with Reflex to HCV, RNA, Quantitative, Real-Time PCR (04/29/2022 2:31 PM EST) Hepatitis C Antibody NON-REACT POP NON-REACT POP [facility] Index 0.22 <1.00 [facility] Comment: HCV antibody was non-reactive. There is no laboratory evidence of HCV infection. In most cases, no further action is required. However, if recent HCV exposure is suspected, a test for HCV RNA (test code 31776) is suggested. For additional information please refer to http://education.[employer]/faq/LTT19l2 (This link is being provided for informational/ educational purposes only.) Blood Venous blood specimen / Unknown 04/29/2022 2:31 PM EST 04/29/2022 2:31 PM EST Narrative [facility] - 04/30/2022 4:39 AM EST FASTING:NO FASTING: NO Cate Chavez MD LAB BLOOD ORDERABLES Final Res ult [facility] [address] [facility] [place] [address] [facility] [address] [facility], ([address]) [place] [address] * HIV 1/2 ANTIGEN/ANTIBODY,FOURTH GENERATION W/RFL (01/24/2021 1:02 PM EDT) [facility] HIV-1/2 ANTIGEN AND ANTIBODIES, 4TH GENERATION W/ REFLEX NON-REACT POP NON-REACT POP [facility] Comment: HIV-1 antigen and HIV-1/HIV-2 antibodies were not detected. There is no laboratory evidence of HIV infection. ?? PLEASE NOTE: This information has been disclosed to you from records whose confidentiality may be protected by state law. ??If your state requires such protection, then the state law prohibits you from making any further disclosure of the information without the specific written consent of the person to whom it pertains, or as otherwise permitted by law. A general authorization for the release of medical or other information is NOT sufficient for this purpose. ? For additional information please refer to http://education.[employer]/faq/DVE538 (This link is being provided for informational/ educational purposes only.) ? The performance of this assay has not been clinically validated in patients less than 2 years old. ?? 01/24/2021 1:02 PM EDT us Cate Chavez MD LAB BLOOD ORDERABLES Final Res ult [facility] [address] from Last 3 Months or Most Recently Relevant to Health Maintenance Insurance [facility] C3 HSN FULL Care Teams Manager Legal Relationship Specialty Start Date End Date Cate Chavez MD [address] [place] [phone] PCP - General Family Medicine 11/21/20
--- OUTSIDE RECORDS SUMMARY | 2024-05-18 12:37 | XMS_ITS | Encounter Summary ---
Author Organization [employer] Address [address] [facility] 7[address] [place] [address] Care Team Providers Care Fire Services Plumber Name Role Phone Cate Chavez MD Primary Care Provider [phone] Encounter Details Date Type Department Care Team (Late st Contact Info) Description 02/24/2023 Abstract [facility] MEDICINE [address] [place], [place] [phone] Francie Bar Social History Tobacco Use Types Packs/Day Years Used Date Smoking Tobacco: Every Day Cigarettes Smokeless Tobacco: Never Alcohol Use Standard Drinks/Week Comments Never 0 (1 standard drink = 0.6 oz pur e alcohol) Depression Answer Date Recorded Patient Health Questionnaire-9 Score 14 04/29/2022 Housing Stability Answer Date Recorded What is your housing situation today? I do not have housing (Staying with others, in a hotel, in a [place], living outside on the street, on a beach, in a car, or in a park 01/05/[address] you li ve. Do you have problems with any of the following? None of the above 01/05/2023 Food Insecurity Answer Date Recorded Within the past 12 months, y ou worried that your food would run out before you got money to buy more: Often true 2022 Within the past 12 months,th e food you bought just didn't last and you didn't have enough money to get more: Sometimes True 01/27/2023 Transportation Answer Date Recorded In the past 12 months, has l ack of transportation kept you from medical appts, meetings, work or from getting things needed for daily living? No 01/27/2023 Utilities Answer Date Recorded In the past 12 months, has t he electric, gas, oil or water company threatened to shut off services in your home? No 01/27/2023 Depression Answer Date Recorded Patient Health Questionnaire-2 Score 2 07/24/2022 Sex and Gender Information Value Date Recorded Sex Assigned at Male 01/28/2022 10:29 AM EDT Legal Sex Male 10:29 AM EDT Gender Identity Male 01/28/2022 10:29 AM EDT Sexual Orientation Straight 01/28/2022 10 :29 AM EDT documented as of this encounter Plan of Treatment Not on file documented as of this encounter Procedures Procedure Name Priority Date/Time Associated Diagnosis Comments COLONOSCOPY Routine 06/06/2022 documented in this encounter Results * Hm Colonoscopy (06/06/2022) Colonoscopy Normal Normal Narrative Francie Bar - 06/06/2022 Repeat in 5 years Historical Provider HEALTH MAINTENANCE Final Result documented in this encounter Visit Diagnoses Not on filedocumented in this encounter Additional Health Concerns Assessment Noted Time PHQ-9 Depression Total Score: 14 023 1:42 PM EST documented as of this encounter Care Teams Fire Services Plumber Relationship Specialty Start Date End Date Cate Chavez MD [address] [place] [address] PCP - General Family Medicine 11/21/20 documented as of this encounter
--- OUTSIDE RECORDS SUMMARY | 2024-05-18 12:37 | XMS_ITS | Encounter Summary ---
Author Organization [employer] Address [address] [facility] 7t [place] [address] Care Team Providers Care Insurance Coder Name Role Phone Cate Chavez MD Primary Care Provider [phone] Reason for Visit * Reason Comments Care Coordination CHW outreach for SDO H housing search-referral completed Encounter Details Date Type Department Care Team (Latest Contact Info) Description 05/04/2024 Patient Outreach [facility] MEDICINE [address] [place], [place] [phone] Cate Chavez MD [address] [place] [address] Care Coordination (CHW outreach for SDOH housing search-referral completed ) Social History Tobacco Use Types Packs/Day Years [...] as of this encounter Progress Notes * Wero Travis - 05/04/2024 10:14 AM EST CHW Wero Travis, placed outbound call to patient for assistance with SDOH as a referral was placed by the provider. Patient had screened positive for the following SDOH insecurities. No answer atthis time. Patient's name and were not confirmed. CHW left detailed message and provided contact information requesting return call for assistance. Patient educated on extended clinic hours on Mondays through Wednesdays, and Walk-In Urgent Care Located in [facility]. Patient provided with after-hours line for [facility], , which offer night time triage service and option to transfer toon call provider if needed. documented in this encounter Plan of Treatment Not on file documented as of this encounter Visit Diagnoses Not on filedocumented in this encounter Additional Health Concerns Assessment Noted Time PHQ-9 Depression Total Score: 18 024 9:30 AM EDT documented as of this encounter Care Teams Insurance Coder Relationship Specialty Start Date End Date Cate Chavez MD [address] [place] [address] PCP - General Family Medicine 11/21/20 documented as of this encounter
--- OUTSIDE RECORDS SUMMARY | 2024-05-18 12:37 | XMS_ITS | Encounter Summary ---
Author Organization [employer] Address [address] [facility] 7t [place] [address] Care Team Providers Care Medication Reconciliation Technician Name Role Phone Cate Chavez MD Primary Care Provider [phone] Reason for Visit * Reason Onset Date Comments Durable Medical Equipment 03/28/2022 Encounter Details Date Type Department Care Team (Late st Contact Info) Description 03/28/2022 Telephone [facility] MEDICINE [address] [place], [place] [phone] Cate Chavez MD [address] [place], [place] [phone] Durable Medical Equipment Social History Tobacco Use Types Packs/Day Years Used Date Smoking Tobacco: Never Assessed Sex and Gender Information Value Date Recorded Sex Assigned at Male 01/28/2022 10:29 AM EDT Legal Sex Male 10:29 AM EDT Gender Identity Male 01/28/2022 10:29 AM EDT Sexual Orientation Straight 01/28/2022 10 :29 AM EDT documented as of this encounter Miscellaneous Notes * Telephone Encounter - Margo Vivar - 04/02/2022 2:19 PM EST Script for cane generated for signature Script signed and faxed to [facility] * Telephone Encounter - Breana Foley - 03/28/2022 9:48 AM EST Tc from pt requesting a cane . documented in this encounter Plan of Treatment Not on file documented as of this encounter Visit Diagnoses Not on filedocumented in this encounter Care Teams Medication Reconciliation Technician Relationship Specialty Start Date End Date Cate Chavez MD [address] [place] [address] PCP - General Family Medicine 11/21/20 documented as of this encounter
--- OUTSIDE RECORDS SUMMARY | 2024-05-18 12:37 | XMS_ITS | Encounter Summary ---
Author Organization [employer] Address [address] [facility] 7t [place] [address] Care Team Providers Care Summer Babysitter Name Role Phone Cate Chavez MD Primary Care Provider [phone] Encounter Details Date Type Department Care Team (Late st Contact Info) Description 04/25/2022 Orders Only [facility] [address] [place] [address] Tasha Irwin LPN Social History Tobacco Use Types Packs/Day Years Used Date Smoking Tobacco: Never Assessed Depression Answer Date Recorded Patient Health Questionnaire-9 Score 14 04/29/2022 Sex and Gender Information Value Date Recorded Sex Assigned at Male 01/28/2022 10:29 AM EDT Legal Sex Male 10:29 AM EDT Gender Identity Male 01/28/2022 10:29 AM EDT Sexual Orientation Straight 01/28/2022 10 :29 AM EDT documented as of this encounter Miscellaneous Notes * Result Encounter Note - Cate Chavez MD - 04/25/2022 12:54 PM EST Please thank patient for getting updated xrays of all his problem/painful area. They all show various degrees of arthritis change. Does he have an appointment to see orthopedics? documented in this encounter Plan of Treatment Not on file documented as of this encounter Procedures Procedure Name Priority Date/Time Associated Diagnosis Comments HEMATOXYLIN AND EOSIN STAIN Routine 06/05/2022 2:52 PM EST XR FOOT 3+ VIEWS RIGHT Routine 05/09/2022 2:42 PM EST XR KNEE 3 VIEWS LEFT Routine 05/09/2022 2:42 PM EST XR ELBOW 3+ VIEWS LEFT Routine 05/09/2022 2:42 PM EST documented in this encounter Results * Hematoxylin and Eosin Stain (06/05/2022 2:52 PM EST) 06/05/2022 2:52 PM EST 06/05/2022 3:30 PM EST Narrative [facility] - 06/06/2022 2:35 PM EST ----- ------- Name: Jin Jacobs ?Age/Sex: 52/M ? : 1970 Unit#: [id number] ?? Attend Dr: Aníbal Rodriguez MD ?Re06/05/22 ?Status: DEP VAC ? Location: HO.SSS ?Disch: ? ----- ------- SPEC : [id number] ? RECD: 06/05/22 ? STATUS: ??SOUT ? REQ NUM: [id number] ? BRYAN: 06/05/22 ? SUBM DR: Aníbal Rodriguez MD ? ENTERED: ??06/05/22 ?SP TYPE: Surgical ? OTHR DR: Cate Chavez ? ORDERED: ??HE Stain/3, Gross Micro L4 ? Diagnosis ?? Rectum, polypectomy: ??Hyperplastic mucosal polyp. ?Clinical History Pre-Op Dx: ??Colon cancer screening Post-Op Dx: Internal hemorrhoids, skin tag, colon polyp ?Microscopic Description Microscopic sections reviewed. ? Material Received ?? Rectal polyp ? Gross Description Received in formalin labeled Rectal polyp is a 1.2 x 0.5 x 0.1 - 0.2 cm., elongate, thin and delicate fragment of mucosa with an eccentric, 0.3 cm., pink-red papule. ??The specimen is bisected and entirely submitted in a single cassette labeled A. CEDS Copies To: ?? Aníbal Rodriguez MD ?? [address] [place] [address] DrAnh ?? [place] [address] ?? [phone] ?? Cate Chavez ?? [address] [facility] ?? [place] [address] ?? [phone] ----- ------- Signed (signature on file) Juan Jose Ayers MD 06/06/22 1435 ? ----- ------- ? END OF REPORT ? [facility] External Provider LAB BLO OD ORDERABLES Final Result [facility] [address] [place] [address] [phone] * XR Foot 3+ Views Right (05/09/2022 2:42 PM EST) Anatomical Region Laterality Modality Lower Extremities, Foot Right Radiogra phic Imaging 05/09/2022 2:42 PM EST Narrative 05/15/2022 9:03 PM EST ? [facility] ?[address] ?[place] [address] ?XRay Report ? Signed ? Patient: Jin Jacobs ?MR#: [id number] ?? 3 ? : 1970 ?Acct:[id number] ? Age/Sex: 52 / M ?ADM Date: 02/09/23 ? Loc: HO.XRAY ? Attending Dr: Cate Chavez MD ? Ordering Physician: Cate Chavez ?? Date of Service: 05/09/22 ?? Procedure(s): XR foot RT min 3V ?? Accession Number(s): [id number] ? cc: Cate Chavez ? EXAMINATION: ?? XR FOOT, RIGHT ? CLINICAL INFORMATION: ?? Pain. ? COMPARISON: ?? None ? TECHNIQUE: ?? AP, lateral, and oblique views of the right foot. ? FINDINGS: ?? Bony alignment and mineralization are normal. There is marked ?? osteoarthritic change of the first metatarsophalangeal joint, with ?? exuberant peripheral osteophyte formation. No fracture, dislocation or ?? right ankle joint effusion is seen. Boehler's angle is normal. There is ?? no calcaneal spur. No focal soft tissue swelling, gas or foreign body ?? is seen. ? XR/XR foot RT min 3V ?? IMPRESSION: ? 1. No fracture, dislocation or right ankle joint effusion is seen. ? 2. There is marked osteoarthritic change of the right first ?? metatarsophalangeal joint. ? Dictated By: ?Sherman Tomas MD ? Signed By: ?<Electronically signed by Sherman Tomas MD in OV> ? 05/15/22 2100 ? DD/ 1442 ? TD/TT: ? Bread Racker: FLAVIA ? Procedure Note Donestevan, Image - 05/15/2022 [place] [address] XRay Report Signed Patient: Marcelo Jacobs#: [id number] 3 : 1970Acct:[id number] Age/Sex: 52 / MADM Date: 05/09/22 Loc: ANDREW Attending Dr: Cate Chavez MD Ordering Physician: Cate Chavez Date of Service: 05/09/22 Procedure(s): XR foot RT min 3V Accession Number(s): [id number] cc: Cate Chavez EXAMINATION: XR FOOT, RIGHT CLINICAL INFORMATION: Pain. COMPARISON: None TECHNIQUE: AP, lateral, and oblique views of the right foot. FINDINGS: Bony alignment and mineralization are normal. There is marked osteoarthritic change of the first metatarsophalangeal joint, with exuberant peripheral osteophyte formation. No fracture, dislocation or right ankle joint effusion is seen. Boehler's angle is normal. There is no calcaneal spur. No focal soft tissue swelling, gas or foreign body is seen. XR/XR foot RT min 3V IMPRESSION: 1. No fracture, dislocation or right ankle joint effusion is seen. 2. There is marked osteoarthritic change of the right first metatarsophalangeal joint. Dictated By: Sherman Tomas MD Signed By: <Electronically signed by Sherman Tomas MD in OV> 05/15/22 2100 DD/ 1442 TD/TT: Bread Racker: FLAVIA us [facility] External Provider IMG XR PROCEDURES Final Result * XR Knee 3 Views Left (05/09/2022 2:42 PM EST) Anatomical Region Laterality Modality Lower Extremities, Knee Left Radiogra phic Imaging 05/09/2022 2:42 PM EST Narrative 05/15/2022 9:01 PM EST ? [facility] ?[address] ?[place] [address] ?XRay Report ? Signed ? Patient: Jin Jacobs ?MR#: [id number] ?? 3 ? : 1970 ?Acct:[id number] ? Age/Sex: 52 / M ?ADM Date: 05/09/22 ? Loc: HO.XRAY ? Attending Dr: Cate Chavez MD ? Ordering Physician: Cate Chavez ?? Date of Service: 05/09/22 ?? Procedure(s): XR knee LT 3V ?? Accession Number(s): [id number] ? cc: Cate Chavez ? EXAMINATION: ?? XR KNEE, LEFT ? CLINICAL INFORMATION: ?? Osteoarthritis. ? COMPARISON: ?? Radiographs dated 08/15/2020. ? TECHNIQUE: ?? AP and lateral views of the left knee. ? FINDINGS: ?? Bony alignment and mineralization are normal. There is moderate ?? asymmetric narrowing of the medial joint space compartment. The lateral ?? and patellofemoral joint space compartments are well-maintained. There ?? is slight peripheral osteophyte formation of the patellofemoral ?? compartment. No fracture or dislocation is seen. This no significant ?? varus or valgus configuration. No foreign body is seen. ? XR/XR knee LT 3V ?? IMPRESSION: ?? There is moderate degenerative change of the medial joint space ?? compartment of the left knee, and mild degenerative change is seen of ?? the patellofemoral compartment. No fracture, dislocation or joint ?? effusion is noted. ? Dictated By: ?Sherman Tomas MD ? Signed By: ?<Electronically signed by Sherman Tomas MD in OV> ? 05/15/222057 ? DD/ 1442 ? TD/TT: ? Bread Racker: FLAVIA ? Procedure Note Donstephenter, Image - 05/15/[address] [address] XRay Report Signed Patient: Jin JacobsMR#: [id number] 3 : 1970Acct:[id number] Age/Sex: 52 / MADM Date: 05/09/22 Loc: ANDREW Attending Dr: Cate Chavez MD Ordering Physician: Cate Chavez Date of Service: 05/09/22 Procedure(s): XR knee LT 3V Accession Number(s): [id number] cc: Cate Chavez EXAMINATION: XR KNEE, LEFT CLINICAL INFORMATION: Osteoarthritis. COMPARISON: Radiographs dated 08/15/2020. TECHNIQUE: AP and lateral views of the left knee. FINDINGS: Bony alignment and mineralization are normal. There is moderate asymmetric narrowing of the medial joint space compartment. The lateral and patellofemoral joint space compartments are well-maintained. There is slight peripheral osteophyte formation of the patellofemoral compartment. No fracture or dislocation is seen. This no significant varus or valgus configuration. No foreign body is seen. XR/XR knee LT 3V IMPRESSION: There is moderate degenerative change of the medial joint space compartment of the left knee, and mild degenerative change is seen of the patellofemoral compartment. No fracture, dislocation or joint effusion is noted. Dictated By: Sherman Tomas MD Signed By: <Electronically signed by Sherman Tomas MD in OV> 05/15/222057 DD/ 41 TD/TT: Bread Racker: FLAVIA us [facility] External Provider IMG XR PROCEDURES Final Result * XR Elbow 3+ Views Left (05/09/2022 2:42 PM EST) Anatomical Region Laterality Modality Upper Extremities, Elbow Left Radiogr aphic Imaging 05/09/2022 2:42 PM EST Narrative 05/15/2022 8:35 PM EST ? [facility] ?[address] ?[place] [address] ?XRay Report ? Signed ? Patient: Reynaldo,Jin ?MR#: [id number] ?? 3 ? : 1970 ?Acct:[id number] ? Age/Sex: 52 / M ?ADM Date: 05/09/22 ? Loc: HO.XRAY ? Attending Dr: Cate Chavez MD ? Ordering Physician: Cate Chavez ?? Date of Service: 05/09/22 ?? Procedure(s): XR elbow LT min 3V ?? Accession Number(s): [id number] ? cc: Cate Chavez ? EXAMINATION: ?? XR ELBOW, LEFT ? CLINICAL INFORMATION: ?? Pain. ? COMPARISON: ?? None ? TECHNIQUE: ?? AP, lateral, and oblique views of the left elbow. ? FINDINGS: ?? Bony alignment and mineralization are normal. No fracture, dislocation ?? or joint effusion is seen. There are mild osteoarthritic changes of the ?? articular surfaces of the left elbow. No soft tissue swelling, gas or ?? foreign body is seen. ? XR/XR elbow LT min 3V ?? IMPRESSION: ? 1. No fracture, dislocation or left elbow joint effusion is seen. ? 2. There are mild osteoarthritic changes of the left elbow. ? Dictated By: ?Sherman Tomas MD ? Signed By: ?<Electronically signed by Sherman Tomas MD in OV> ? 05/15/222031 ? DD/ ? TD/TT: ? Bread Racker: FLAVIA ? Procedure Note Doron Rdz - 05/15/2022 [facility] [address] [facility] [place] [address] XRay Report Signed Patient: Jin JacobsMR#: [id number] 3 : 1970Acct:[id number] Age/Sex: 52 / MADM Date: 05/09/22 Loc: [facility]ARRONAnhJENJAY[facility]ON Attending Dr: Cate Chavez MD Ordering Physician: Cate Chavez Date of Service: 05/09/22 Procedure(s): XR elbow LT min 3V Accession Number(s): [id number] cc: Cate Chavez EXAMINATION: XR ELBOW, LEFT CLINICAL INFORMATION: Pain. COMPARISON: None TECHNIQUE: AP, lateral, and oblique views of the left elbow. FINDINGS: Bony alignment and mineralization are normal. No fracture, dislocation or joint effusion is seen. There are mild osteoarthritic changes of the articular surfaces of the left elbow. No soft tissue swelling, gas or foreign body is seen. XR/XR elbow LT min 3V IMPRESSION: 1. No fracture, dislocation or left elbow joint effusion is seen. 2. There are mild osteoarthritic changes of the left elbow. Dictated By: Sherman Tomas MD Signed By: <Electronically signed by Sherman Tomas MD in OV> 05/15/222031 DD/ 1442 TD/TT: Bread Racker: FLAVIA Authorjuno Provider Result Type Result Stat [facility] External Provider IMG XR PROCEDURES Final Result documented in this encounter Visit Diagnoses Not on filedocumented in this encounter Care Teams Summer Babysitter Relationship Specialty Start Date End Date Cate Chavez MD [address] [place] [address] PCP - General Family Medicine 11/21/20 documented as of this encounter
--- OUTSIDE RECORDS SUMMARY | 2024-05-18 12:37 | XMS_ITS | Encounter Summary ---
Author Organization [email or web address] Address [address] [facility] 7t [place] [address] Care Team Providers Care Wire Lather Name Role Phone Cate Chavez MD Primary Care Provider [phone] Encounter Details Date Type Department Care Team (Latest Contact Info) Description 05/18/2024 Travel Social History Tobacco Use Types Packs/Day Years [...] with others, in a hotel, in a fpc, living outside on the street, on a [...] documented as of this encounter Care Teams Wire Lather Relationship Specialty Start Date End Date Cate Chavez MD [address] [place] [address] PCP - General Family Medicine 11/21/20 documented as of this encounter
--- OUTSIDE RECORDS SUMMARY | 2024-05-18 12:37 | XMS_ITS | Encounter Summary ---
Author Organization [employer] Address [address] [facility] 7t [place] [address] Care Team Providers Care Bead Cutter Name Role Phone Cate Chavez MD Primary Care Provider [phone] Encounter Details Date Type Department Care Team (Late st Contact Info) Description 03/28/2022 Telephone [facility] MEDICINE [address] [place], [place] [phone] Caet Chavez MD [address] [place], [place] [phone] Social History Tobacco Use Types Packs/Day Years [...] on filedocumented in this encounter Care Teams Bead Cutter Relationship Specialty Start Date End Date Cate Chavez MD [address] [place] [address] PCP - General Family Medicine 11/21/20 documented as of this encounter
--- OUTSIDE RECORDS SUMMARY | 2024-05-18 12:37 | XMS_ITS | Clinical Summary ---
Author Organization [facility] Address [address] [place] [address] Care Team Providers Care Clinical Advisor Name Role Phone Unavailable Primary Care Provider Unavailabl e Social History Tobacco Use Types Packs/Day Years Used Date Smoking Tobacco: Never Assessed Sex and Gender Information Value Date Recorded Sex Assigned at Not on file Gender Identity Not on file Sexual Orientation Not on file Plan of Treatment Health Maintenance Due Date Last Done Comments Hepatitis B Vaccines (1 of 3 - 3-dose series) 1970 Hepatitis C Screening 1970 COVID-19 Vaccine (#1) 1970 Depression Screening 1982 Preventative Health Evaluation 1988 DTap / Tdap / Td (1 - Tdap) 1989 Colon Cancer Screening (Colonoscopy) 2015 Shingrix-Zoster Vaccine (1 of 2) 2020 Influenza Vaccine (#1) 2023 Pneumococcal Vaccine Aged Out No long er eligible based on patient's age to complete this topic RSV Ped < 20 months Aged Out No longe r eligible based on patient's age to complete this topic
[2024-05-18 13:08] LABS: MANUAL DIFF FLAG NO
[2024-05-18 13:13] LABS: Basophils Absolute Auto 0.1 X10*3/uL (0.0-0.2); Basophils Percent Auto 0.7 % (0-2); Eosinophils Absolute Auto 0.1 X10*3/uL (0.0-0.4); Eosinophils Percent Auto 1.7 % (0-4); Hematocrit 45.1 % (42.0-52.0); Hemoglobin 14.9 g/dl (14.0-18.0); Imm Gran Abs Auto 0.02 X10*3/uL (0.00-0.03); Imm Gran Pct Auto 0.3 % (0.0-0.4); Lymphocytes Absolute Auto 1.5 X10*3/uL (1.2-4.9); Lymphocytes Percent Auto 21.4 % (20-40); Mean Corpuscular Volume 99.8 fL (80.0-98.0); Monocytes Absolute Auto 0.7 X10*3/uL (0.1-1.2); Monocytes Percent Auto 9.7 % (2-11); Neutrophils Absolute Auto 4.7 x10*3/uL (2.0-8.3); Neutrophils Percent Auto 66.2 % (45-73); Platelet Count 271 X10*3/uL (160-400); Red Blood Count 4.52 X10*6/uL (4.60-5.80); Red Cell Distribution Width 12.2 % (11.0-16.0)
[2024-05-18 13:33] LABS: Estimated Average Glucose 120 mg/dL; Hemoglobin A1c % 5.8 % (<6.0); Total Hemoglobin (HGBA1C) 3843.1725 umol/L
[2024-05-18 13:43] LABS: Alanine Aminotransferase 40 U/L (0-40); Albumin Level 4.3 g/dL (3.5-5.0); Alkaline Phosphatase 89 U/L (39-117); Anion Gap 13 (12-20); Aspartate Amino Transferase 35 U/L (5-37); Bilirubin Total 0.4 mg/dL (0.0-1.0); Blood Urea Nitrogen 12 mg/dL (9-16); Carbon Dioxide 25 mmol/L (22-29); Chloride 106 mmol/L (96-108); Cholesterol 233 mg/dL (<200); Estimated Glomerular Filt Rate > 60; Glucose Random 156 mg/dL (60-115); HDL Cholesterol 75 mg/dL (>40); LDL Cholesterol Calculated 146 mg/dL (<100); Potassium 4.6 mmol/L (3.3-5.1); Sodium 139 mmol/L (135-145); Total Protein 7.8 g/dL (6.5-8.0); Triglycerides 60 mg/dL (<150)
[2024-05-18 13:45] LABS: TSH reflex Free T4 1.13 uIU/mL (0.32-4.0)
[2024-05-18 13:48] LABS: Microalbum/Creatinine Ratio Ur 3.6 ug/mg cr (<30)
== END 2024-05-18 11:22 | disposition home or self-care (01) ==
LOC: HO.HHCL 11:21
PROVIDERS: Visit Provider General Practice
DX: I10 Essential (primary) hypertension (principal); R73.03 Prediabetes; E87.5 Hyperkalemia; M79.641 Pain in right hand
CPT/HCPCS: 36415; 73130; 80053; 80061; 82043; 82570; 83036; 84443; 85025

== ENCOUNTER → 2024-05-18 11:56 | Outpatient (BNV) | payer MEDICAID, SELFPAY | PROVIDERS: Visit Provider Radiology Diagnostic Radiology | DX: M79.641 Pain in right hand (principal) | CPT/HCPCS: 73130 ==

== ENCOUNTER 2024-12-21 11:57 | Outpatient (REF) | payer MEDICAID, SELFPAY ==
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
--- OUTSIDE RECORDS SUMMARY | 2024-12-21 14:51 | XMS_ITS | Encounter Summary ---
Author Organization [employer] Address [address] [facility] [address], [place] [address] Care Team Providers Care Statuary Painter Name Role Phone Cate Chavez MD Primary Care Provider [phone] Reason for Visit * Reason Onset Date Comments Chart Prep 12/20/2024 Encounter Details Date Type Department Care Team (Late st Contact Info) Description 12/20/2024 Telephone [facility] [address] [place], [place] [phone] Cate Chavez MD [address] [place] [address] Chart Prep Social History Tobacco Use Types Packs/Day Years [...] with others, in a hotel, in a longterm, living outside on the street, on a [...] encounter Miscellaneous Notes * Telephone Encounter - Libby An [place] - 12/20/2024 12:26 PM EDT Chart Prep Labs: not applicable Images: not applicable Referrals: not applicable Vaccines due: Covid, Flu, PCV20, Hep B, and Zoster Screenings: not applicable Overdue care gaps: PHQ-9, AJAY-7, and Disability screen Pt prediabetes documented in this encounter Plan of Treatment Upcoming Encounters Date Type Department Care Team (Late st Contact Info) Description 12/27/2024 11:00 AM EDT Clinical Support [facility] [address] [place] [address] documented as of this encounter Visit Diagnoses Not on filedocumented in this encounter Additional Health Concerns Assessment Noted Time PHQ-9 Depression Total Score: 18 024 9:30 AM EDT documented as of this encounter Care Teams Statuary Painter Relationship Specialty Start Date End Date Cate Chavez MD [address] [place] [address] PCP - General Family Medicine 11/21/20 documented as of this encounter
--- OUTSIDE RECORDS SUMMARY | 2024-12-21 14:51 | XMS_ITS | Encounter Summary ---
Author Organization [employer] Address [address] [facility] 7[address] [place] [address] Care Team Providers Care Supervisor Maintenance Name Role Phone Cate Chavez MD Primary Care Provider [phone] Encounter Details Date Type Department Care Team (Latest Contact Info) Description 12/21/2024 Travel Social History Tobacco Use Types Packs/Day [...] with others, in a hotel, in a detention, living outside on the street, on a [...] AM EDT documented as of this encounter Functional Status * Over the [...] Assessment Author Several days 12/21/2024 11:03 AM AUGUSTINET Lula Inman [place] * Moving or speaking so slowly that other people could have noticed? Or the opposite - being so fidgety or restless that you have been moving around a lot more than usual. Answer Date of Assessment Author Several days 12/21/2024 11:03 AM Lula Mccray MA * Thoughts that you would be better off or hurting yourself in some way Answer Date of Assessment Author Not at all 12/21/2024 11:03 AM Lula Mccray [place] * Patient Health Questionnaire-9 Score Answer Date of Assessment Author 8 12/21/2024 11:03 AM EDLula Thomas MA * How difficult have these problems made it for you to do your work, take care of things at home, or get along with other people? Answer Date of Assessment Author Somewhat difficult 12/21/2024 11:03 AM EDLula Briceño MA * Over the last 2 weeks, how often have you been bothered by any of the following problems? Question Answer Date of Assessment Author Feeling nervous, anxious, or on edge 1 12/21/2024 11:03 AM Lula Kidd MA Not being able to stop or control worrying 1 12/21/2024 11:03 AM EDT Lula Ariza MA Worrying too much about different things 1 12/21/2024 11:03 AM EDT Lula Ariza MA Trouble relaxing 1 12/21/2024 11:03 AM EDT Lula Ariza MA Being so restless that it is hard to sit still 1 12/21/2024 11:03 AM EDT Lula Ariza MA Becoming easily annoyed or irritable 1 12/21/2024 11:03 AM EDT Lula Ariza MA Feeling afraid as if something awful might happen 1 12/21/2024 11:03 AM EDT Lula Fitzgerald MA AJAY-7 Total Score 7 12/21/2024 11:03 AM EDT Lula Ariza [place] documented as of this encounter Plan of Treatment Upcoming Encounters Date Type Department Care Team (Late st Contact Info) Description 12/27/2024 11:00 AM EDT Clinical Support [facility] [address] [place] [address] documented as of this encounter Visit Diagnoses Not on filedocumented in this encounter Additional Health Concerns Assessment Noted Time PHQ-9 Depression Total Score: 8 12/22/19 25 11:03 AM EDT documented as of this encounter Care Teams Supervisor Maintenance Relationship Specialty Start Date End Date Cate Chavez MD [address] [place] [address] PCP - General Family Medicine 11/21/20 documented as of this encounter
--- OUTSIDE RECORDS SUMMARY | 2024-12-21 14:51 | XMS_ITS | Encounter Summary ---
Author Organization [employer] Address [address] [facility] [address] [place] [address] Care Team Providers Care Goods Layer Name Role Phone Cate Chavez MD Primary Care Provider [phone] Reason for Visit * Reason Onset Date Comments Durable Medical Equipment 03/28/2022 Encounter Details Date Type Department Care Team (Late st Contact Info) Description 03/28/2022 Telephone [facility] [address] [place], [place] [phone] Cate Chavez MD [address] [place], [place] [phone] Durable Medical Equipment Social History Tobacco Use [...] Description 12/27/2024 11:00 AM EDT Clinical Support [facility] [address] [place] [address] documented as of this encounter Visit Diagnoses Not on filedocumented in this encounter Care Teams Goods Layer Relationship Specialty Start Date End Date Cate Chavez MD [address] [place] [address] PCP - General Family Medicine 11/21/20 documented as of this encounter
--- OUTSIDE RECORDS SUMMARY | 2024-12-21 14:51 | XMS_ITS | Encounter Summary ---
Author Organization [employer] Address [address] [facility] 7t [place] [address] Care Team Providers Care Program Project Manager Name Role Phone Cate Chavez MD Primary Care Provider [phone] Encounter Details Date Type Department Care Team (Late st Contact Info) Description 07/27/2024 Orders Only [facility] [address] [place], [place] [phone] Cate Chavez MD [address] [place], [place] [phone] Social History Tobacco Use Types Packs/Day Years [...] 11:00 AM EDT Clinical Support [facility] [address] [place] [address] documented as of this encounter Visit Diagnoses Not on filedocumented in this encounter Additional Health Concerns Assessment Noted Time PHQ-9 Depression Total Score: 18 024 9:30 AM EDT documented as of this encounter Care Teams Program Project Manager Relationship Specialty Start Date End Date Cate Chavez MD [address] [place] [address] PCP - General Family Medicine 11/21/20 documented as of this encounter
--- OUTSIDE RECORDS SUMMARY | 2024-12-21 14:51 | XMS_ITS | Encounter Summary ---
Author Organization [employer] Address [address] [facility] 7[address] [place] [address] Care Team Providers Care Assistant Passenger Locomotive Engineer Name Role Phone Cate Chavez MD Primary Care Provider [phone] Encounter Details Date Type Department Care Team (Late st Contact Info) Description 02/24/2023 Abstract [facility] [address] [place] [address] Francie Bar Social History Tobacco Use Types [...] with others, in a hotel, in a usp, living outside on the street, on a [...] Description 12/27/2024 11:00 AM EDT Clinical Support [facility] [address] [place] [address] documented as of this encounter Procedures Procedure Name Priority Date/Time Associated Diagnosis Comments COLONOSCOPY Routine 06/06/2022 documented in this encounter Results * Hm Colonoscopy (06/06/2022) Colonoscopy Normal Normal Narrative Francie Bar - 06/06/2022 Repeat in 5 years us Historical Provider HEALTH MAINTENANCE Final Result documented in this encounter Visit Diagnoses Not on filedocumented in this encounter Additional Health Concerns Assessment Noted Time PHQ-9 Depression Total Score: 14 023 1:42 PM EST documented as of this encounter Care Teams Assistant Passenger Locomotive Engineer Relationship Specialty Start Date End Date Cate Chavez MD [address] [place] [address] PCP - General Family Medicine 11/21/20 documented as of this encounter
--- OUTSIDE RECORDS SUMMARY | 2024-12-21 14:51 | XMS_ITS | Encounter Summary ---
Author Organization [employer] Address [address] [facility] [address] [place] [address] Care Team Providers Care Supervisor Fabrication Name Role Phone Cate Chavez MD Primary Care Provider [phone] Encounter Details Date Type Department Care Team (Late st Contact Info) Description 03/28/2022 Telephone [facility] [address] [place] [phone] Cate Chavez MD [address] [place] [phone] Social History Tobacco Use Types Packs/Day Years [...] Description 12/27/2024 11:00 AM EDT Clinical Support [facility] [address] [place] [phone] documented as of this encounter Visit Diagnoses Not on filedocumented in this encounter Care Teams Supervisor Fabrication Relationship Specialty Start Date End Date Cate Chavez MD [address] [place] [address] PCP - General Family Medicine 11/21/20 documented as of this encounter
--- OUTSIDE RECORDS SUMMARY | 2024-12-21 14:51 | XMS_ITS | Encounter Summary ---
Author Organization [employer] Address [address] [place] [address] Care Team Providers Care Video Control Operator Name Role Phone Cate Chavez MD Primary Care Provider [phone] Encounter Details Date Type Department Care Team (Late st Contact Info) Description 04/25/2022 Orders Only [facility] [address], [place] [phone] Tasha Irwin LPN Social History Tobacco Use [...] Description 12/27/2024 11:00 AM EDT Clinical Support [facility] [address] [place], [place] [phone] documented as of this encounter Procedures Procedure [...] 2:52 PM EST 06/05/2022 3:30 PM EST [facility] LABS - 06/06/2022 2:35 PM EST ----- ------- Name: Jin Jacobs Age/Sex: 52/M : 1970 Unit#: [id number] Attend Dr: Aníbal Rodriguez MD Re06/05/22 Status: [facility] Location: [facility] Disch: ----- ------- SPEC : [id number] RECD: 06/05/22-1529 STATUS: ARMANDO WASSERMAN NUM: [id number] BRYAN: 06/05/22-6519 [facility] DR: Aníbal Rodriguez MD ENTERED: 06/05/22-0079 SP TYPE: Surgical OTHR DR: Cate Chavez ORDERED: HE Stain/3, Gross Micro L4 Diagnosis Rectum, polypectomy: Hyperplastic mucosal polyp. Clinical History Pre-Op Dx: Colon cancer screening Post-Op Dx: Internal hemorrhoids, skin tag, colon polyp Microscopic Description Microscopic sections reviewed. Material Received Rectal polyp Gross Description Received in formalin labeled Rectal polyp is a 1.2 x 0.5 x 0.1 - 0.2 cm., elongate, thin and delicate fragment of mucosa with an eccentric, 0.3 cm., pink-red papule. The specimen is bisected and entirely submitted in a single cassette labeled A. CEDS Copies To: Aníbal Rodriguez MD [address] [place] [address] [address] [place], [place] [phone] Cate Chavez [address] [place] [phone] ----- ------- Signed (signature on file) Juan Jose Ayers MD 06/06/22 1435 ----- ------- END OF REPORT [facility] External Provider LAB BLO OD ORDERABLES Final Result [facility] [address] [place] [phone] * XR Foot 3+ Views Right (05/09/2022 2:42 PM EST) Anatomical Region Laterality Modality Lower Extremities, Foot Right Radiogra [facility] Imaging 05/09/2022 2:42 PM EST Narrative 05/15/2022 9:03 PM EST [address] [address] XRay Report Signed Patient: Jin Jacobs MR#: [id number] 3 : 1970 Acct:[id number] Age/Sex: 52 / M ADM Date: 05/09/22 Loc: ANDREW Attending Dr: Cate Chavez MD Ordering Physician: Cate Chavez Date of Service: 05/09/22 Procedure(s): XR foot RT min 3V Accession Number(s): [id number] cc: Cate Chavez EXAMINATION: XR FOOT, RIGHT [...] in OV> 05/15/22 2100 DD/ 1442 TD/TT: Washer Assembler: FLAVIA Procedure Note Donotuseinterpreter, Image - 05/15/[address] [address] XRay Report Signed Patient: Jin JacobsMR#: [id number] 3 : 1970Acct:[id number] Age/Sex: 52 / MADM Date: 05/09/22 Loc: ANDREW Attending Dr: Cate Chavez MD Ordering Physician: Cate Chavez Date of Service: 05/09/22 Procedure(s): XR foot RT min 3V Accession Number(s): [id number] cc: Cate Chavez EXAMINATION: XR FOOT, RIGHT [...] in OV> 05/15/22 2100 DD/ 1442 TD/TT: Washer Assembler: FLAVIA [facility] External Provider IMG XR PROCEDURES Final Result * XR Knee 3 Views Left (05/09/2022 2:42 PM EST) Anatomical Region Laterality Modality Lower Extremities, Knee Left Radiogra phic Imaging 05/09/2022 2:42 PM EST Narrative 05/15/2022 9:01 PM EST [place] [address] XRay Report Signed Patient: Jin Jacobs MR#: [id number] 3 : 1970 Acct:[id number] Age/Sex: 52 / M ADM Date: 05/09/22 Loc: ANDREW Attending Dr: Cate Chavez MD Ordering Physician: Cate Chavez Date of Service: 05/09/22 Procedure(s): XR knee LT 3V Accession Number(s): [id number] cc: Cate Chavez EXAMINATION: XR KNEE, LEFT [...] MD in OV> 05/15/222057 DD/ 41 TD/TT: Washer Assembler: FLAVIA Procedure Note Donotuseinterpreter, Image - 05/15/2022 [place] [address] XRay Report Signed Patient: Marcelo Jacobs#: [id number] 3 : 1970Acct:[id number] Age/Sex: 52 / MADM Date: 05/09/22 Loc: ANDREW Attending Dr: Cate Chavez MD Ordering Physician: Cate Chavez Date of Service: 05/09/22 Procedure(s): XR knee LT 3V Accession Number(s): [id number] cc: Cate Chavez EXAMINATION: XR KNEE, LEFT [...] MD in OV> 05/15/222057 DD/ 41 TD/TT: Washer Assembler: FLAVIA [facility] External Provider IMG XR PROCEDURES Final Result * XR Elbow 3+ Views Left (05/09/2022 2:42 PM EST) Anatomical Region Laterality Modality Upper Extremities, Elbow Left Radiogr aphic Imaging 05/09/2022 2:42 PM EST Narrative 05/15/2022 8:35 PM EST [address] [address] XRay Report Signed Patient: Jin Jacobs MR#: [id number] 3 : 1970 Acct:[id number] Age/Sex: 52 / M ADM Date: 05/09/22 Loc: ANDREW Attending Dr: Cate Chavez MD Ordering Physician: Cate Chavez Date of Service: 05/09/22 Procedure(s): XR elbow LT min 3V Accession Number(s): [id number] cc: Cate Chavez EXAMINATION: XR ELBOW, LEFT [...] Sherman Tomas MD in OV> 05/15/222031 DD/ 41 TD/TT: Washer Assembler: FLAVIA Procedure Note Donotuseinterpreter, Image - 05/15/2022 [facility] [address] [place] [address] XRay Report Signed Patient: Jin JacobsMR#: [id number] 3 : 1970Acct:[id number] Age/Sex: 52 / MADM Date: 05/09/22 Loc: [facility] Attending Dr: Cate Chavez MD Ordering Physician: Cate Chavez Date of Service: 05/09/22 Procedure(s): XR elbow LT min 3V Accession Number(s): [id number] cc: Cate Chavez EXAMINATION: XR ELBOW, LEFT [...] Sherman Tomas MD in OV> 05/15/222031 DD/ 41 TD/TT: Washer Assembler: FLAVIA [facility] External Provider IMG XR PROCEDURES Final Result documented in this encounter Visit Diagnoses Not on filedocumented in this encounter Care Teams Video Control Operator Relationship Specialty Start Date End Date Cate Chavez MD [address] [place] [phone] PCP - General Family Medicine 11/21/20 documented as of this encounter
--- OUTSIDE RECORDS SUMMARY | 2024-12-21 14:51 | XMS_ITS | Clinical Summary ---
Author Organization [facility] Address [address] [place] [address] Care Team Providers Care Chief Concierge Name Role Phone Unavailable Primary Care Provider [...] (1 of 2) 2020 Influenza Vaccine (#1) 2024 Pneumococcal Vaccine Aged Out No long er eligible based on patient's age to complete this topic RSV Ped < 20 months Aged Out No longe r eligible based on patient's age to complete this topic
== END 2024-12-21 11:58 | disposition home or self-care (01) ==
LOC: HO.HHCX 11:57
PROVIDERS: PCP General Practice; Visit Provider General Practice
DX: Z13.89 Encounter for screening for other disorder (principal)